=== PATIENT | male | born 1950 | race Caucasian/White ===

== ENCOUNTER 2021-05-01 14:09 | Emergency (ER) | payer MEDICARE ==
[~2021-05-01] VITALS: Ht 182.9 cm; Wt 118.0 kg
--- NOTE | 2021-05-01 15:03 | NUR ---
[facility] C/O PAIN W/ WEIGHTBEARING. Addendum: 05/01/21 at 1512 by EKATERINA PER EMS REPORT: PT WAS SEEN AT [facility] PRIOR TO TRANSPORT.
--- NOTE | 2021-05-01 16:56 | NUR ---
load dispatcher: Pt ambulatory to room from lobby at this time.
[2021-05-01] MEDS ORDERED: ACETAMINOPHEN 500 MG TABLET ONE (17:19)
[2021-05-01] MEDS ORDERED: CYCLOBENZAPRINE 10 MG TABLET ONE (17:19)
[2021-05-01] MEDS ORDERED: KETOROLAC 30 MG/1 ML ONE (17:19)
[2021-05-01] MEDS ORDERED: CYCLOBENZAPRINE 10 MG TABLET PO ONE (17:30)
[2021-05-01] MEDS ORDERED: KETOROLAC 30 MG/1 ML IM ONE (17:30)
[2021-05-01] MEDS ORDERED: ACETAMINOPHEN 500 MG TABLET PO ONE (17:30)
[2021-05-01] MEDS ORDERED: SILVER NITRATE STICK TP ONE (18:07)
--- NOTE | 2021-05-01 18:44 | NUR ---
MD Guerra at bedside for eval.
--- NOTE | 2021-05-01 18:58 | NUR ---
Bedside report to ARNAUD Rodriguez. To assume care. Pt to be d/c'd.
--- NOTE | 2021-05-01 19:33 | NUR ---
pt stable, pt states his back is better, pt ambulated to the bathroom and was steady on his feet but pt still requested to be pushed out to the lobby via wheelchair
[2021-05-01 19:34] VITALS: BP 127/73
== END 2021-05-01 19:37 | disposition home or self-care (01) ==
LOC: ED 15:00
DX: S39.012A Strain of muscle, fascia and tendon of lower back, initial encounter (principal); L03.116 Cellulitis of left lower limb; E66.01 Morbid (severe) obesity due to excess calories; Z68.35 Body mass index [BMI] 35.0-35.9, adult; X58.XXXA Exposure to other specified factors, initial encounter; Y93.89 Activity, other specified; Y92.89 Other specified places as the place of occurrence of the external cause; Y99.8 Other external cause status
CPT/HCPCS: 72110; 96372; 99283; J1885